=== PATIENT | male | born 1995 | race Caucasian/White ===

== ENCOUNTER 2018-08-06 02:11 | Emergency (ER) | payer BC, OTHER ==
[~2018-08-06] VITALS: Ht 185.4 cm; Wt 113.0 kg
[2018-08-06 02:38] LABS: CHLORIDE 105 mEq/L (98-107)
[2018-08-06 02:42] LABS: ETHANOL BLOOD 145 mg/dL
[2018-08-06 02:48] LABS: BASOPHILS % 0.6 % (0.0-2.0); EOSINOPHILS % 0.3 % (0.0-5.0); HEMATOCRIT. 45.4 % (42.0-52.0); HEMOGLOBIN. 15.7 g/dL (14.0-18.0); LYMPHOCYTES % 21.9 % (20.0-50.0); MEAN CORPUSCULAR HEMOGLOBIN 32.4 pg (28.0-32.0); MEAN CORPUSCULAR VOLUME 93.7 fL (80.0-94.0); MEAN PLATELET VOLUME 9.9 fl (7.4-10.4); MONOCYTES % 6.4 % (2.0-8.0); NEUTROPHILS % 70.8 % (40.0-76.0); PLATELET 284 x1000/uL (130-400); RED BLOOD CELL COUNT 4.85 mill/uL (4.7-6.1); RED CELL DISTRIBUTION WIDTH 12.4 % (11.6-14.6)
[2018-08-06] MEDS ORDERED: IOHEXOL-300 100 ML BOTTLE ONE (03:50)
[2018-08-06 05:22] LABS: CLARITY URINE CLEAR (CLEAR); COLOR URINE YELLOW (YELLOW); KETONES URINE NEGATIVE (NEGATIVE); LEUKOCYTE ESTERASE URINE NEGATIVE (NEGATIVE); NITRITE URINE NEGATIVE (NEGATIVE); OCCULT BLOOD URINE 2+ (NEGATIVE); PROTEIN URINE NEGATIVE (NEGATIVE); SPECIFIC GRAVITY URINE 1.056 (1.005-1.030); UROBILINOGEN URINE 0.2 E.U./dL (0.2-1.0)
[2018-08-06] MEDS ORDERED: MORPHINE SULFATE 4 MG/ML CPJ (NOT FOR IM USE) IV STA (05:27)
[2018-08-06] MEDS ORDERED: ONDANSETRON HCL 4MG/2ML INJ IV STA (05:27)
[2018-08-06 05:39] LABS: CANNABINOID URINE SCREEN PRESUMTIVE POSITIVE (NEGATIVE); PHENCYCLIDINE URINE SCREEN NEGATIVE (NEGATIVE)
[2018-08-06 05:40] LABS: *AMPHETAMINES SCREEN URINE PRESUMTIVE POSITIVE (NEGATIVE); *BARBITURATES SCREEN URINE NEGATIVE (NEGATIVE); *BENZODIAZEPINES SCREEN URINE NEGATIVE (NEGATIVE); *COCAINE SCREEN URINE NEGATIVE (NEGATIVE); METHADONE URINE SCREEN NEGATIVE (NEGATIVE); OPIATES URINE SCREEN NEGATIVE (NEGATIVE)
[2018-08-06 06:12] VITALS: BP 174/90
[2018-08-06] MEDS ORDERED: TETANUS, DIPHTHERIA, PERTUSSIS VAC/PF 0.5ML (>7YR OLD) IM ONE (06:45)
== END 2018-08-06 07:30 | disposition short-term general hospital (02) ==
LOC: ER 02:23
DX: S21.119A Laceration without foreign body of unspecified front wall of thorax without penetration into thoracic cavity, initial encounter (principal); Y09 Assault by unspecified means; Y93.9 Activity, unspecified; Y92.9 Unspecified place or not applicable
CPT/HCPCS: 36415; 71045; 71260; 74177; 80053; 80305; 80320; 81003; 85025; 96374; 96375; 99285; J2270; J2405; Q9967; G0480